=== PATIENT | male | born 1965 | race Caucasian/White ===

== ENCOUNTER 2017-03-09 15:36 | Emergency (ER) | payer BC ==
[~2017-03-09] VITALS: Ht 177.8 cm; Wt 83.9 kg
--- OUTSIDE RECORDS SUMMARY | 2017-03-09 15:42 | External Medical Summary Rpt | CCD ---
Author Author [employer] Organization [employer] Address Unknown Phone Unavailable Purpose Continuity of Care Document - through 2016
--- OUTSIDE RECORDS SUMMARY | 2017-03-09 15:42 | External Medical Summary Rpt | CCD ---
Author Author , LANDRY PRICE Address Unknown Phone [email or web address] Purpose Continuity of Care Document - through 2016
--- OUTSIDE RECORDS SUMMARY | 2017-03-09 15:42 | External Medical Summary Rpt | CCD ---
Demographics Preferred Language Mongolian Marital Status Unknown Yarsanism Affiliation Unknown Race Unknown Ethnic Group Unknown Author Author , LANDRY PRICE Address Unknown Phone Immunization No patient found.
--- OUTSIDE RECORDS SUMMARY | 2017-03-09 15:42 | External Medical Summary Rpt | CCD ---
Demographics Preferred Language Kiswahili Marital Status Unknown Restoration Affiliation Unknown Race Unknown Ethnic Group Unknown Author Author , LANDRY PRICE Address Unknown Phone Immunization No patient found.
--- OUTSIDE RECORDS SUMMARY | 2017-03-09 15:42 | External Medical Summary Rpt | CCD ---
Author Author , LANDRY PRICE Address Unknown Phone [email or web address] Purpose Continuity of Care Document - through 2016
--- OUTSIDE RECORDS SUMMARY | 2017-03-09 15:42 | External Medical Summary Rpt ---
Author Author [facility] [employer], [employer] Organization [employer] Address Unknown Phone Unavailable
--- NOTE | 2017-03-09 16:28 | Urgent Treatment Center Report ---
History of Present Issue Date/Time Seen by Provider 03/09/17 0273 Visit Reason Pt arrived:Wheelchair Presenting Problem:SUDDEN PAIN LEFT CALF WHILE PUSHING A TREE LOG Location if Accident: Onset of symptoms date/time:/ or onset unknown for:MEDICAL HX UNKNOWN Have you (or family members/close friends) recently traveled outside the [place]? N If Yes, where/when: Have you had exposure to infectious disease within the past month? TB? Other? Specify: c/o left calf pain since approx 2pm. At that time, was pushing a large tree stump "trying to use my legs and not my back because I have a bad back" when he felt a sudden pop "and smack. I thought I had either stepped on a twig and it hit the back of my leg or been snake bitten". Immediate calf pain with difficulty ambulating. Reports it took nearly 20 mins to get to house "less then a few hundred yards away". Pain worse with trying to ambulate "not necessarily the bearing weight but rolling my foot". Improved w/ "normal alignment of my foot and ankle at rest". Hx of chronic back pain. Pt of a pain mgmt clinic and reports he already contacted them about the injury. Takes zanaflex and nycenta for chronic pain. Hasn't taken or tried anything new since this occurred and isn 't looking for pain medication "just to know what this is. I know if nycenta is treating the pain, nothing you give me will". Source patient Exam Limitations no limitations ALLERGIES Coded Allergies: lovastatin (03/09/17) Home Medications Reported Medications MISCELLANEOUS (UNKNOWN MEDICATION) 1 TABLET PO BIDP History Medical History General Angina: No UT: No Hypertension? Yes Hyperlipidemia? Yes CHF? No COPD? No Asthma? No CVA? No Seizures? No Diabetes? No GB Disease: No MRSA? No TB? No Cancer? No Immunization HX DT/Tetanus 1-4 YRS Surgical Hx Previous Surgery?Y BACK SURGEY Tonsils R EYE SURGERY Social History Smoking Hx Smoker: Never Smoker Tobacco: No Alcohol Alcohol: No Review of Systems All Other Systems Reviewed and Negative (as appropriate for CC) Constitutional see HPI, denies fever Musculoskeletal see HPI, denies joint pain, denies joint swelling Skin denies change in color, denies lumps Psychiatric/Neurological denies numbness, denies tingling Physical Exam Vital Signs Vital Signs Date Time Temp Pulse Resp B/P Pulse O2 O2 Flow FiO2 Ox Delivery Rate 03/09 1742 97.9 73 18 148/82 97 03/09 1723 18 03/09 1548 97.9 73 20 131/96 97 General Appearance no apparent distress (seated in WC) Respiratory Status No: respiratory distress. Cardiovascular no peripheral edema Peripheral Pulses Pulses normal Yes (PT/DP) Back abnormal gait, difficulty bearing weight left foot while walking, Extremities normal range of motion (left knee, ankle, toes), normal inspection ( left knee, LLL, ankle, foot), symmetrical lower legs anteriorly and posteriorly, no muscle bulging seen or palpated, tenderness localized to medial head of left gastrocnemius muscle; no gastrocnemius or achilles tendon tenderness. Pain most significant proximally and improves w/ distal palpation, pain worse with plantar flexion and improved initially with dorsiflexion "unless I go too far". Strength 5 Lower Ext (L), 5 Lower Ext (R) Neurologic alert, no motor/sensory deficits Skin intact, normal color, warm/dry Medical Decision Making LABS/Meds/Orders Pt receiving controlled substance in ED? No Results/Orders Orders Procedure Date/time Status STABILIZE JOINT 03/09 172 Active Consult MD Physician Consult 1 Consult/PCP Dr. Diop, CARLO Time Called 1718 Reason Pt. Condition Comments Discussed HPI and exam. Too proximal for her. Refer to ortho. Physician Consult 2 Consult/PCP Dr. Bui, ER Time Called 1720 Reason Pt. Condition Comments Discussed HPI and exam. Agrees w/ a clinical diagnosis. Doesn't feel imaging necessary at this time. Follow up with ortho. No activity that causes pain. Non weight bearing. Departure Departure Time of Disposition 1724 Disposition DC Home or Self Care(routine) Clinical Impression Primary Impression: Gastrocnemius strain, left Qualifiers: Encounter type: initial encounter Qualified Code: S86.112A - Strain of other muscle(s) and tendon(s) of posterior muscle group at lower leg level, left leg, initial encounter Condition STABLE Referrals Cordell Moran MD Call office in the morning. Let them know you were seen in [facility] this evening. Dx gastrocnemius strain w/concern for a tear. Office closed and provider unable to call for follow up this week. Request appointment. Seek treatment with PCP, ER or [place] for new or worsening symptoms before seen by ortho. Patient Instructions DI for Calf Muscle Strain, How To Perform RICE (Rest, Ice, Compress, Elevate), How to Use a Walking Boot, How to Use Crutches Additional Instructions * weight bearing as tolerated but if pain, do NOT bear weight * No activity that causes pain * Rest * ice 15-20 mins 3-4 times a day * walking boot for support and positioning. Be sure not too tight but not too loose either * Elevate as discussed as much as possible to help reduce swelling and therefore , pain * Ibuprofen every 6 hours as needed for pain and inflammation. Discharge Counseling Counseled pt/family regarding diagnosis, medications/RX, home care, follow up needs at 1934
[2017-03-09 17:42] VITALS: BP 148/82
== END 2017-03-09 17:43 | disposition home or self-care (01) ==
LOC: UTC 15:36
DX: S86.112A Strain of other muscle(s) and tendon(s) of posterior muscle group at lower leg level, left leg, initial encounter (principal); X50.0XXA Overexertion from strenuous movement or load, initial encounter; Y93.H2 Activity, gardening and landscaping; Y92.007 Garden or yard of unspecified non-institutional (private) residence as the place of occurrence of the external cause; I10 Essential (primary) hypertension; E78.5 Hyperlipidemia, unspecified; Z79.899 Other long term (current) drug therapy; G89.29 Other chronic pain; M54.9 Dorsalgia, unspecified